=== PATIENT | male | born 1950 | race African-American/Black ===

== ENCOUNTER 2016-07-24 21:01 | Emergency (ER) | payer BC ==
[~2016-07-24] VITALS: Ht 175.3 cm; Wt 167.8 kg
[2016-07-24] MEDS ORDERED: SILVADENE20 GM TP (21:50)
[2016-07-24] MEDS ORDERED: FUROSEMIDE20 M1 ORAL (21:50)
[2016-07-24 22:13] VITALS: BP 150/73
--- NOTE | 2016-07-25 02:54 | Emergency Room Report ---
History of Present Illness General Chief Complaint: General Complaint Source: Patient Present Illness HPI Patient is a 66-year-old male presented after increased lower extremity blistering. Patient gradual onset of symptoms. Patient was noted to have a previous similar symptoms to the upper portion of his right leg. Patient had prior history of sleep apnea. Patient was taking calcium channel blockers for hypertension. He denied prior history of heart failure. He states he was taking any blood pressure medication which contained some diuretic. He denied any fever. He denied severe pain. Allergies: Coded Allergies: No Known Allergies (Unverified , 07/24/16) Patient History Past Medical History: see triage record Reviewed Nursing Documentation: PMH: Agreed, PSxH: Agreed Nursing Documentation-PMH Hx Hypertension: Yes Hx Diabetes: Yes Review of Systems All Other Systems: negative except mentioned in HPI Physical Exam Vital Signs Date Time Temp Pulse Resp B/P Pulse Ox O2 Delivery O2 Flow Rate FiO2 07/24/16 21:12 97.9 74 16 150/73 96 Room Air General Appearance: alert, obese Head: normocephalic, atraumatic ENT: hearing grossly normal, normal voice Neck: full range of motion, supple Respiratory: no respiratory distress, speaking full sentences Cardiovascular #1: normal inspection, normal peripheral pulses, regular rate, rhythm, edema Gastrointestinal: non tender, soft Musculoskeletal: no calf tenderness Neurologic: normal inspection, alert, oriented x3, responsive, bilingual account manager III-XII nml as tested, normal gait Psychiatric: mood/affect normal Skin: no rash Medical Decision Making Diagnostic Impression: Primary Impression: Pedal edema ER Course Patient presented for lower extremity rash. Differential diagnosis included but was not limited to fracture, contusion, vascular insufficiency, cellulitis , contact dermatitis. Patient's benign exam and does not appear to require any further imaging or laboratory testing at this time. The patient was advised followup with his primary care physician for recheck. The patient was advised to keep his legs elevated and watch his salt intake. Patient was given prescription for diuretic. Patient appears to have a pedal edema with some blistering do to venous stasis. The patient was advised to recheck with primary care physician for possible change of his blood pressure medications. Last Vital Signs Date Time Temp Pulse Resp B/P Pulse Ox O2 Delivery O2 Flow Rate FiO2 07/24/16 22:13 97.9 95 16 150/73 96 Room Air Status: improved Disposition: HOME, SELF-CARE Condition: Stable Scripts Silver Sulfadiazine (SILVADENE) 20 Gm Cream..g. 20 GM TP DAILY, #300 GM Prov: Diego Wilson 07/24/16 Furosemide* (LASIX*) 20 Mg Tablet 20 MG ORAL 2XW for edema, #10 TAB Prov: Diego Wilson 07/24/16 Referrals: NOT CHOSEN IPA/MD,REFERRING Patient Instructions: Edema Diego Wilson Jul 25, 2016 02:54
== END 2016-07-24 22:19 | disposition home or self-care (01) ==
LOC: EMR 21:41
DX: R60.0 Localized edema (principal); I10 Essential (primary) hypertension; E11.9 Type 2 diabetes mellitus without complications; Z79.899 Other long term (current) drug therapy
CPT/HCPCS: 99284